=== PATIENT | male | born 1955 | race Caucasian/White ===

== ENCOUNTER 2020-09-30 17:02 | Emergency (ER) | payer MEDICARE, OTHER ==
[2020-09-30 20:21] LABS: BASOPHIL 0.1 % (0-2); EOSINOPHIL 0.3 % (0-7); HCT 34.1 % (42.0-52.0); HGB 11.7 g/dl (13.2-18.0); LYMPHOCYTE 5.6 % (15-48); MCH 29.2 pg (25.0-31.0); MCHC 34.3 g/dL (32.0-36.0); MONOCYTE 2.7 % (0-12); MPV 9.2 fL (6.0-9.5); NRBC 0; PLT 619 K/uL (150-400); RBC 4.01 M/uL (4.70-6.00); RDW 18.3 % (11.5-14.0); WBC 14.9 K/uL (4.0-10.5)
[2020-09-30 20:27] LABS: NEUTROPHIL 90.5 % (41-80)
[2020-09-30 20:34] LABS: ALBUMIN 1.4 g/dL (3.4-5.0); BILIRUBIN - TOTAL 5.5 mg/dL (0.2-1.0); CREATININE 0.8 mg/dL (0.67-1.17); POTASSIUM 5.5 mmol/L (3.5-5.1); TOTAL PROTEIN 7.4 g/dL (6.4-8.2)
[2020-09-30 20:42] LABS: PRO-BNP 2557 pg/mL (<125)
[2020-10-01] MEDS ORDERED: LEVAQUIN750 MG PO (01:22)
[2020-10-01] MEDS ORDERED: XOPENEX (00.63 MG/3 INH (01:22)
[2020-10-01] MEDS ORDERED: NEBULIZER UNIT NEB (01:22)
== END 2020-10-01 01:50 | disposition home or self-care (01) ==
LOC: FER 17:02
PROVIDERS: Emergency Medicine
DX: J90 Pleural effusion, not elsewhere classified (principal); J98.11 Atelectasis; C22.0 Liver cell carcinoma; K74.60 Unspecified cirrhosis of liver; Z87.891 Personal history of nicotine dependence; Z20.822 Contact with and (suspected) exposure to COVID-19
CPT/HCPCS: 36415; 36600; 71045; 71275; 80053; 82248; 82803; 83605; 83880; 84145; 84484; 85025; 85379; 87040; 93005; 94640; 94664; 94760; J2930; J7030; Q9967; U0002